=== PATIENT | female | born 1980 | race Caucasian/White ===

== ENCOUNTER 2016-11-12 21:31 | Emergency (ER) | payer OTHER ==
[~2016-11-12] VITALS: Ht 154.9 cm; Wt 104.0 kg
[~2016-11-12 21:31] MED LIST: IBUP200C93 PO
[2016-11-13] MEDS ORDERED: HYDROmorphone 2 MG/ML SYRINGE IVP ONE (02:15)
[2016-11-13] MEDS ORDERED: ONDANSETRON HCL 4 MG/2 ML VIAL IVP ONE (02:15)
[2016-11-13] MEDS ORDERED: SODIUM CHLORIDE 0.9% 1,000 ML IV ONE (02:15)
[2016-11-13] MEDS ORDERED: KETOROLAC TROMETHAMINE 30 MG/ML VIAL IVP ONE (02:15)
[2016-11-13 04:23] VITALS: BP 135/76
== END 2016-11-13 04:28 | disposition home or self-care (01) ==
LOC: EMS 21:32
DX: G43.909 Migraine, unspecified, not intractable, without status migrainosus (principal); I10 Essential (primary) hypertension
CPT/HCPCS: 96361; 96374; 96375; 99284; J1170; J1885; J2405; J7030

== ENCOUNTER 2017-04-30 14:16 | Emergency (ER) | payer OTHER ==
[~2017-04-30] VITALS: Ht 154.9 cm; Wt 100.0 kg
[2017-04-30 14:28] LABS: GLUCOSE,POINT OF CARE 199 MG/DL (70-110)
[2017-04-30 15:20] LABS: BASOPHILS % (AUTO) 0.2 % (0.0-2.0); EOSINOPHILS % (AUTO) 2.4 % (1.0-6.0); HEMATOCRIT 39.3 % (36-46); HEMOGLOBIN 13.6 g/dL (12.0-16.0); LYMPHOCYTES # (AUTO) 1.7 K/uL (1.0-4.8); LYMPHOCYTES % (AUTO) 24.9 % (22.0-44.0); MEAN CORPUSCULAR HGB CONC 34.7 G/dL (31.0-37.0); MEAN CORPUSCULAR VOLUME 87 fL (80-100); MONOCYTES # (AUTO) 0.3 K/uL (0.1-1.0); MONOCYTES % (AUTO) 4.6 % (2.0-9.0); NEUTROPHILS # (AUTO) 4.5 K/uL (1.8-7.7); NEUTROPHILS % (AUTO) 67.9 % (40.0-70.0); PLATELET COUNT (AUTO) 201 K/uL (150-450); RED BLOOD CELL COUNT(AUTO) 4.54 MIL/uL (4.00-5.20); RED CELL DISTRIBUTION WIDTH 14.4 % (11.5-14.5)
[2017-04-30 15:33] LABS: ANION GAP 9 mmol/L (8-16); CALCIUM, TOTAL 8.7 mg/dL (8.8-10.5); CARBON DIOXIDE 27 mmol/L (22-29); CHLORIDE 103 mmol/L (98-107); GLOMERULAR FILTR. RATE CALC > 60 mL/min (>60); GLUCOSE,RANDOM 203 mg/dL (70-110); POTASSIUM 3.6 mmol/L (3.5-5.1); SODIUM SERUM 139 mmol/L (136-145); UREA NITROGEN, BLOOD 9 mg/dL (7-18)
[2017-04-30 15:45] LABS: ALANINE AMINOTRANSFERASE 43 U/L (12-78); ALBUMIN 3.9 g/dL (3.4-5.0); ALKALINE PHOSPHATASE 68 U/L (46-116); ASPARTATE AMINOTRANSFERASE 17 U/L (15-37); BILIRUBIN,TOTAL 0.5 mg/dL (0.1-1.0); TOTAL PROTEIN, SERUM 7.5 g/dL (6.4-8.2)
[2017-04-30] MEDS ORDERED: KETOROLAC TROMETHAMINE 60 MG/2 ML VIAL IM ONE (17:00)
[2017-04-30] MEDS ORDERED: METOCLOPRAMIDE HCL 5 MG/ML 2 ML VIAL IM ONE (17:00)
[2017-04-30] MEDS ORDERED: LISINOPRIL 10 MG TABLET PO ONE (17:15)
[2017-04-30] MEDS ORDERED: HYDROCHLOROTHIAZIDE 25 MG TABLET PO ONE (17:15)
[2017-04-30 17:25] LABS: APPEARANCE,URINE CLOUDY (CLEAR); BILIRUBIN,URINE NEGATIVE (NEGATIVE); GLUCOSE, URINE (UA) 100 mg/dL (NEGATIVE); KETONES,URINE NEGATIVE (NEGATIVE); LEUKOCYTE ESTERASE ,URINE SMALL (NEGATIVE); NITRATE,URINE NEGATIVE (NEGATIVE); OCCULT BLOOD,URINE NEGATIVE (NEGATIVE); PH,URINE 6.5 (5.0-8.0); PROTEIN,URINE TRACE (NEGATIVE)
[2017-04-30 17:41] VITALS: BP 147/98
[2017-04-30 17:50] LABS: BACTERIA,URINE Many /HPF (None Seen); SQUAMOUS EPITHELIAL CELL,UR Few /LPF (None Seen)
[2017-04-30 17:51] LABS: CALCIUM OXALATE CRYSTALS,UR Few /LPF (None Seen)
[2017-04-30 17:52] LABS: RBC,URINE 0-2 /HPF (0-2)
[2017-04-30 17:53] LABS: HCG,QUAL RESULT NEGATIVE (NEGATIVE)
== END 2017-04-30 17:44 | disposition home or self-care (01) ==
LOC: EMS 14:17
DX: G43.909 Migraine, unspecified, not intractable, without status migrainosus (principal); I10 Essential (primary) hypertension; Z90.49 Acquired absence of other specified parts of digestive tract
CPT/HCPCS: 36415; 80053; 81001; 82962; 84703; 85025; 87086; 96372; 99284; J1885; J2765

== ENCOUNTER 2018-09-23 14:02 | Emergency (ER) | payer OTHER ==
[~2018-09-23] VITALS: Ht 154.9 cm; Wt 104.5 kg
[2018-09-23 14:03] VITALS: BP 145/99
[2018-09-23] MEDS ORDERED: LISI1TAB9 PO (14:14)
== END 2018-09-23 15:50 | disposition home or self-care (01) ==
LOC: EMS 14:02
DX: H66.92 Otitis media, unspecified, left ear (principal); J02.9 Acute pharyngitis, unspecified; G43.909 Migraine, unspecified, not intractable, without status migrainosus; I10 Essential (primary) hypertension; Z98.51 Tubal ligation status; Z90.49 Acquired absence of other specified parts of digestive tract; Z79.899 Other long term (current) drug therapy

== ENCOUNTER 2021-09-08 16:48 | Emergency (ER) | payer OTHER ==
[~2021-09-08] VITALS: Ht 157.5 cm; Wt 77.3 kg
[~2021-09-08 16:48] MED LIST changes: +LISI1TAB9 PO
[2021-09-08] MEDS ORDERED: CYCLOBENZAPRINE HCL 10 MG TABLET PO ONE (17:15)
[2021-09-08] MEDS ORDERED: IBUPROFEN 600 MG TABLET PO ONE (17:15)
[2021-09-08 19:19] VITALS: BP 152/99
[2021-09-08] MEDS ORDERED: CYCL10TA17 PO (19:23)
== END 2021-09-08 19:30 | disposition home or self-care (01) ==
LOC: EMS 16:50
DX: M54.12 Radiculopathy, cervical region (principal); M25.78 Osteophyte, vertebrae
CPT/HCPCS: 72040; 93005; 99283

== ENCOUNTER 2021-11-18 11:18 | Emergency (ER) | payer OTHER ==
[~2021-11-18] VITALS: Ht 154.9 cm; Wt 110.5 kg
[~2021-11-18 11:18] MED LIST changes: +CYCL-448 PO
[2021-11-18 11:31] VITALS: BP 182/95
== END 2021-11-18 13:27 | disposition home or self-care (01) ==
LOC: EMS 11:18
DX: H93.8X2 Other specified disorders of left ear (principal); I10 Essential (primary) hypertension; G43.909 Migraine, unspecified, not intractable, without status migrainosus; Z90.49 Acquired absence of other specified parts of digestive tract; Z98.51 Tubal ligation status
CPT/HCPCS: 99281; Z7502

== ENCOUNTER 2023-01-08 07:58 | Emergency (ER) | payer OTHER ==
[~2023-01-08] VITALS: Ht 152.4 cm; Wt 110.0 kg
[2023-01-08 08:04] VITALS: TEMP 98.4
[2023-01-08] MEDS ORDERED: LISI20TA24 PO (08:06)
[2023-01-08] MEDS ORDERED: METF-446 PO (08:06)
[2023-01-08] MEDS ORDERED: HYDR25TA2 PO (08:06)
[2023-01-08 08:16] LABS: GLUCOMETER DEV NAME(LOC) ERT.5
[2023-01-08] MEDS ORDERED: DOXYCYCLINE HYCLATE 100 MG TABLET PO ONE (08:45)
[2023-01-08] MEDS ORDERED: IBUPROFEN 600 MG TABLET PO ONE (08:45)
[2023-01-08] MEDS ORDERED: DOXY-354 PO (09:04)
[2023-01-08] MEDS ORDERED: IBUP-1492 PO (09:04)
[2023-01-08 09:16] VITALS: BP 118/68; PULSE 88; RESP 16
== END 2023-01-08 09:17 | disposition home or self-care (01) ==
LOC: EMS 07:59
DX: M79.674 Pain in right toe(s) (principal); E11.9 Type 2 diabetes mellitus without complications; I10 Essential (primary) hypertension; G43.909 Migraine, unspecified, not intractable, without status migrainosus; Z90.49 Acquired absence of other specified parts of digestive tract; Z98.51 Tubal ligation status
CPT/HCPCS: 82962; 99283